=== PATIENT | female | born 1995 | race Hispanic/Latino ===

== ENCOUNTER 2017-12-29 11:53 | Emergency (ER) | payer SELFPAY ==
[~2017-12-29] VITALS: Ht 154.9 cm; Wt 90.9 kg
[2017-12-29] MEDS ORDERED: FLOXIN OTIC0.3 % OT (12:15)
[2017-12-29] MEDS ORDERED: LEVAQUIN750 MG PO (13:07)
[2017-12-29 13:10] VITALS: BP 129/74
== END 2017-12-29 13:10 | disposition home or self-care (01) | DRG 156 ==
LOC: ED 11:53
DX: H60.92 Unspecified otitis externa, left ear (principal)

== ENCOUNTER 2018-06-18 18:48 | Emergency (ER) | payer OTHER ==
[~2018-06-18] VITALS: Ht 154.9 cm; Wt 110.0 kg
[~2018-06-18 18:48] MED LIST: FLOXIN OTIC0.3 % OT; LEVAQUIN750 MG PO
[2018-06-18 20:25] LABS: URINE BILIRUBIN - DIPSTICK NEGATIVE (NEGATIVE); URINE BLOOD DIPSTICK LARGE (NEGATIVE); URINE COLOR YELLOW; URINE GLUCOSE - DIPSTICK NEGATIVE (NEGATIVE); URINE KETONE NEGATIVE (NEGATIVE); URINE LEUK ESTERASE NEGATIVE (NEGATIVE); URINE NITRITE - DIPSTICK NEGATIVE (Negative); URINE PROTEIN - DIPSTICK NEGATIVE (NEG-TRACE); URINE SPECIFIC GRAVITY 1.025; URINE UROBILINOGEN - DIPSTICK 0.2 E.U./dL (0.2)
[2018-06-18 20:28] LABS: URINE CLARITY CLEAR
[2018-06-18 20:37] LABS: URINE SQUAMOUS EPITHELIAL CELL FEW EPI/hpf (0-FEW); URINE WBC 0-2 WBC/hpf (0-5)
[2018-06-18 20:54] LABS: HEMATOCRIT 40.5 % (37.0-47.0); HEMOGLOBIN 13.3 g/dl (12.0-16.0); IMMATURE GRANULOCYTES 0.5 % (0.0-5.0); MEAN CELL VOLUME 88.2 fL CALC (80.0-100.0); MEAN CORPUSCULAR HGB CONC 32.8 g/L CALC (32.0-36.0); NEUT# 9.31 thou/uL (2.00-7.15); RED BLOOD COUNT 4.59 mill/uL (4.20-5.60); RED CELL DISTRI WIDTH 13.2 % (11.5-15.5)
[2018-06-18 21:13] LABS: ALKALINE PHOSPHATASE 87 u/l (38-126); ANION GAP 15 (6-22 (CALC)); BILIRUBIN, TOTAL 0.3 mg/dL (0.0-1.4); BUN 7 mg/dL (7-17); BUN/CREATININE RATIO 16 (12-20 (CALC)); CARBON DIOXIDE 22 mmol/l (22-30); CHLORIDE 107 mmol/l (95-108); CREATININE 0.5 mg/dL (0.5-1.0); GFR > 60 ML/MIN (>=60 (CALC)); GFR FOR AFR.AMER. > 60 ML/MIN (>=60 (CALC)); SGOT/AST 24 u/l (14-36); SODIUM 140 mmol/l (137-146); TOTAL PROTEIN 7.6 g/dL (6.3-8.2)
[2018-06-18 21:55] LABS: BETA-HCG, QUANT(RESULT NUMBER) 81345 mIU/mL
[2018-06-18 23:15] VITALS: BP 144/78
== END 2018-06-18 23:19 | disposition home or self-care (01) ==
LOC: ED 18:48
PROVIDERS: Emergency Medicine
DX: O20.0 Threatened abortion (principal); Z3A.10 10 weeks gestation of pregnancy

== ENCOUNTER 2018-09-05 00:42 | Emergency (ER) | payer OTHER ==
[~2018-09-05] VITALS: Ht 154.9 cm; Wt 107.0 kg
[2018-09-05 01:21] LABS: HEMOGLOBIN 12.7 g/dl (12.0-16.0); IMMATURE GRANULOCYTES 0.5 % (0.0-5.0); MEAN CELL VOLUME 88.7 fL CALC (80.0-100.0); MEAN CORPUSCULAR HGB 30.5 pG CALC (26.0-32.0); MEAN CORPUSCULAR HGB CONC 34.3 g/L CALC (32.0-36.0); NEUT# 8.62 thou/uL (2.00-7.15); RED BLOOD COUNT 4.17 mill/uL (4.20-5.60); RED CELL DISTRI WIDTH 13.7 % (11.5-15.5)
[2018-09-05 01:39] LABS: ANION GAP 15 (6-22 (CALC)); BUN 4 mg/dL (7-17); BUN/CREATININE RATIO 10 (12-20 (CALC)); CARBON DIOXIDE 21 mmol/l (22-30); CHLORIDE 106 mmol/l (95-108); CREATININE 0.4 mg/dL (0.5-1.0); GFR > 60 ML/MIN (>=60 (CALC)); GFR FOR AFR.AMER. > 60 ML/MIN (>=60 (CALC)); POTASSIUM 3.6 mmol/l (3.5-5.1); SODIUM 138 mmol/l (137-146)
[2018-09-05] MEDS ORDERED: PHENERGAN25 MG RE ×2 (02:44→15:21)
[2018-09-05] MEDS ORDERED: TESSALON PER100 MG PO ×2 (02:44→15:21)
[2018-09-05 02:52] VITALS: BP 132/70
[2018-09-05 03:05] LABS: URINE BILIRUBIN - DIPSTICK NEGATIVE (NEGATIVE); URINE BLOOD DIPSTICK NEGATIVE (NEGATIVE); URINE COLOR YELLOW; URINE GLUCOSE - DIPSTICK NEGATIVE (NEGATIVE); URINE KETONE TRACE mg/dL (NEGATIVE); URINE LEUK ESTERASE NEGATIVE (NEGATIVE); URINE NITRITE - DIPSTICK NEGATIVE (Negative); URINE PH 6.5 (4.5-8.0); URINE PROTEIN - DIPSTICK NEGATIVE (NEG-TRACE); URINE SPECIFIC GRAVITY <=1.005; URINE UROBILINOGEN - DIPSTICK 0.2 E.U./dL (0.2)
== END 2018-09-05 03:01 | disposition home or self-care (01) ==
LOC: ED 00:42
PROVIDERS: Family Medicine
DX: O98.512 Other viral diseases complicating pregnancy, second trimester (principal); A08.4 Viral intestinal infection, unspecified; Z3A.20 20 weeks gestation of pregnancy; R05 Cough; R11.10 Vomiting, unspecified; R09.89 Other specified symptoms and signs involving the circulatory and respiratory systems

== ENCOUNTER 2018-12-02 19:54 | Emergency (ER) | payer OTHER ==
[~2018-12-02] VITALS: Ht 154.9 cm; Wt 110.0 kg
[~2018-12-02 19:54] MED LIST changes: +PHENERGAN25 MG RE; +TESSALON PER100 MG PO
[2018-12-02] MEDS ORDERED: KEFLEX500 MG PO (20:21)
[2018-12-02 21:31] VITALS: BP 126/71
== END 2018-12-02 21:31 | disposition home or self-care (01) ==
LOC: ED 19:54
DX: O99.713 Diseases of the skin and subcutaneous tissue complicating pregnancy, third trimester (principal); L02.11 Cutaneous abscess of neck; Z3A.33 33 weeks gestation of pregnancy

== ENCOUNTER 2019-10-25 11:12 | Emergency (ER) | payer OTHER ==
[~2019-10-25 11:12] MED LIST changes: +KEFLEX500 MG PO
[2019-10-25] MEDS ORDERED: FLOXIN OTIC0.3 % AD (12:11)
[2019-10-25] MEDS ORDERED: AMOXICILLIN875 MG PO (12:11)
[2019-10-25 12:15] VITALS: BP 131/77
== END 2019-10-25 12:15 | disposition home or self-care (01) ==
LOC: ED 11:12
DX: H66.91 Otitis media, unspecified, right ear (principal); H60.91 Unspecified otitis externa, right ear

== ENCOUNTER 2020-02-28 11:14 | Observation (INO) | payer OTHER ==
[~2020-02-28] VITALS: Ht 157.5 cm; Wt 107.0 kg
[~2020-02-28 11:14] MED LIST changes: +AMOXICILLIN875 MG PO; +FLOXIN OTIC0.3 % AD
--- NOTE | 2020-02-28 11:27 | NUR ---
PT WAS BROUGHT ROOM BY WHEELCHAIR FOR TRIAGE. PT A7O X 3
[2020-02-28 11:56] LABS: HEMOGLOBIN 13.8 g/dl (12.0-16.0); IMMATURE GRANULOCYTES 0.3 % (0.0-5.0); MEAN CELL VOLUME 86.7 fL CALC (80.0-100.0); MEAN CORPUSCULAR HGB 27.8 pG CALC (26.0-32.0); NEUT# 5.56 thou/uL (2.00-7.15); RED BLOOD COUNT 4.97 mill/uL (4.20-5.60); RED CELL DISTRI WIDTH 13.2 % (11.5-15.5)
[2020-02-28 11:57] LABS: URINE BILIRUBIN - DIPSTICK NEGATIVE (NEGATIVE); URINE BLOOD DIPSTICK NEGATIVE (NEGATIVE); URINE COLOR YELLOW; URINE GLUCOSE - DIPSTICK NEGATIVE (NEGATIVE); URINE KETONE NEGATIVE (NEGATIVE); URINE LEUK ESTERASE NEGATIVE (NEGATIVE); URINE NITRITE - DIPSTICK NEGATIVE (Negative); URINE PROTEIN - DIPSTICK NEGATIVE (NEG-TRACE); URINE SPECIFIC GRAVITY >=1.030; URINE UROBILINOGEN - DIPSTICK 0.2 E.U./dL (0.2)
--- NOTE | 2020-02-28 12:01 | NUR ---
PT WAS BROUGHT TO ROOM BY WHEELCHAIR. PT WAS ALERT AND ORIENTED X 3
[2020-02-28 12:07] LABS: HEMATOCRIT 43.1 % (37.0-47.0)
[2020-02-28 12:12] LABS: ALBUMIN 4.6 g/dL (3.2-5.0); AMYLASE 77 u/l (30-110); ANION GAP 12 (6-22 (CALC)); BUN 7 mg/dL (7-17); BUN/CREATININE RATIO 13 (12-20 (CALC)); CARBON DIOXIDE 25 mmol/l (22-30); CHLORIDE 105 mmol/l (95-108); CREATININE 0.6 mg/dL (0.5-1.0); GFR > 60 ML/MIN (>=60 (CALC)); GFR FOR AFR.AMER. > 60 ML/MIN (>=60 (CALC)); LIPASE 62 u/l (23-300); POTASSIUM 3.8 mmol/l (3.5-5.1); SGOT/AST 40 u/l (14-36); SODIUM 139 mmol/l (137-146); TOTAL PROTEIN 8.6 g/dL (6.3-8.2)
[2020-02-28 12:13] LABS: ALKALINE PHOSPHATASE 135 u/l (38-126); BILIRUBIN, TOTAL 0.8 mg/dL (0.0-1.4)
--- NOTE | 2020-02-28 12:53 | NUR ---
PT IS RESTING ON STRETCHER NO DISTRESS NOTED
[2020-02-28] MEDS ORDERED: ZOFRAN4 MG/TAB PO ×2 (13:24)
[2020-02-28] MEDS ORDERED: TRAMADOL HYDROC50 M1 PO (13:24)
--- NOTE | 2020-02-28 13:53 | NUR ---
PT RESTING COMFORTABLY WAITIONG FOR TEST RESULTS. NO DISTRESS NOTED.
--- NOTE | 2020-02-28 15:00 | NUR ---
Admission Note Report Given to: MIGUEL MCDERMOTT Transported by: X Wheelchair Stretcher Transported with: X Nurse Transporter X Patent IV O2 Platform Consultant Location: ICU X MS2
[2020-02-28 15:02] VITALS: BP 114/60
--- NOTE | 2020-02-28 15:02 | NUR ---
RECIEVED REPORT FROM KARYN COLLINS. PT ARRIVED TO MED SURG ROOM 262 IN STABLE CONDITION VIA WHEELCHAIR ACCOMPAINED BY SPOUSE AND ER STAFF. PT AMBULATED FROM WHEELCHAIR TO SCALE WITH STEADY GAIT, FALL RISK BAND APPLIED. ASSESSMENT AND VITALS OBTAINED AT THIS TIME. BP 114/60, HR 62, 02 99% ON ROOM AIR. RESPIRATIONS ARE EVEN AND UNLABROED WITH NO SIGNS OF DISTRESS. LUNG SOUNDS ARE CLEAR. HEART RHYTHM IS NORMAL. BOWEL SOUNDS ARE HYPOACTIVE WITH NO TENDERNESS, LAST REPORTED BM 02/28/20. RADIAL AND PEDAL PULSES ARE STRONG WITH NORMAL CAPILLARY REFILL. SKIN IS WARM AND DRY WITH NO BREAK DOWN OR EDEMA. #20G IN LAC FLUSHED, SITE APPEARS HEALTHY AND PATENT. LR STARTED RUNNING AT 100 ML ORDERED. PT INFORMED WRITTER THAT SHE CAME TO [facility] ER DUE TO A PAIN IN HER ABDOMEN, PT INFORMED WRITTER THAT SHE NO LONGER HAS ANY PAIN AFTER TORADOL GIVEN IN ER. PT DENIES ANY NAUSEA OR PAIN AT THIS TIME. PT INFORMED WRITTER THAT SHE DOES NOT HAVE ANY KNOWN DRUG ALLERGIES, ALLERGY BAND APPLIED. PT DENIES ANY ADDITIONAL NEEDS AT THIS TIME. ALL SAFTEY PRECAUTIONS ARE IN PLACE WITH CALL LIGHT IN REACH. PT ORIENTED TO CALL SYSTEM AND ROOM.WILL CONTINUE TO MONITOR.
--- NOTE | 2020-02-28 16:00 | NUR ---
PT NOTIFED OF SCHEDULED LAPAROSCOPIC CHOLECYSTECTOMY, PT VERABLIZED UNDERSTANIDNG. PT REQUESTED TO SPEAK TO DR BEFORE SIGNING CONSENT.
--- NOTE | 2020-02-28 16:36 | NUR ---
PT RESTING IN SEMI FOWLERS POSITION WITH AT BEDSIDE. RESPIRATIONS ARE EVEN AND UNLABORED WITH NO SIGNS OF DISTRESS. PT DENIES ANY PAIN OR DISCOMFORTS AT THIS TIME. ALL SAFETY 0PRECAUTIONS ARE IN PLACE WITH CALL LIGTH IN REACH.WILL CONTINUE TO MONITOR
[2020-02-28 19:00] VITALS: BP 136/86
--- NOTE | 2020-02-28 19:55 | NUR ---
Received report for this pt and in bed with eyes open and able to make needs known. no respiratory distress noted. will continue to observe.
[2020-02-28 20:37] VITALS: BP 111/75
[2020-02-29] VITALS (9 sets, daily range): BP systolic 121–139; BP diastolic 45–104
--- NOTE | 2020-02-29 03:09 | NUR ---
PT IN BED WITH EYES CLOSED. RESPIRATIONS ARE EVEN AND NON LABORED. PT IS ABLE TO VERBALIZE NEEDS. CURRENTLY NPO STATUS FOR SURGERY IN AM AND CONSENT SIGNED. WAS GIVEN DILAUDID EARLIER IN SHIFT ANF VOMITED SHORTLY AFTER ADMINISTERED. ZOFRAN WAS GIVEN AND EFFECTIVE. PT IS AMBULATORY WITH STEADY GAIT AND BALANCE AND CONTINENT OF B/B. TOLERATING ZOSYN ABT WELL. IV TO LAC INTACT AND DRESSING IN PLACE AND SITE APPEARS TO BE HEALTHY. LACTATED RINGERS RUNNING AT 100ML/HR AND TOLERATING WELL. CALL LIGHT IS WITHIN REACH AND BED IN LOWEST POSITION WILL CONTINUE TO OBSERVE.
--- NOTE | 2020-02-29 05:35 | NUR ---
PT IN BED WITH EYES CLOSED. NO S/S OF DISTRESS. MEDICATIONS GIVEN AND TOLEERATED WELL. MILD PAIN IN RIGHT UPPER AND RIGHT LOWER QUADRANT OF ABDOMEN. MEDICATED PRESCIBED FROM MD WITH TORADOL AND TOLERATING WELL. CONTINENT OF B/B AND AMBULATES TO TOILET. CALL LIGHT WITHIN REACH. BSC AT BEDSIDE . EDUCATED PT TO CALL FOR ASSIST WITH TRANSFERS AND SHE STATED THAT SHE UNDERSTOOD. WILL CONTINUE TO OBSERVE.
[2020-02-29 05:49] LABS: ALBUMIN 3.7 g/dL (3.2-5.0); DIRECT BILIRUBIN 0.4 mg/dl (0.0-0.3); TOTAL PROTEIN 6.9 g/dL (6.3-8.2)
[2020-02-29 05:52] LABS: BILIRUBIN, TOTAL 2.4 mg/dL (0.0-1.4)
--- NOTE | 2020-02-29 11:50 | NUR ---
PT ARRIVED TO [facility] ROOM 262 IN STABLE CONDITION VIA STRETCHER ACCOMPAINED BY OR STAFF. PT TRANSPORTED FOR WHEELCHAIR TO BED WITH NO DIFFICULTY. ASSESSMENT AND VITALS COMPLETED AT THIS TIME. BP 139/73, HR 84, O2 98% ON ROOM AIR . RESPIRATIONS ARE EVEN AND UNLABORED WITH NO SIGNS OF DISTRESS. LUNG SOUNDS ARE CLEAR. HEART RYTHM IS NORMAL. BOWEL SOUNDS ARE HYPOACTIVE WITH TENDERNESS IN ALL QUADRANTS. RADIAL AND PEDAL PULSES ARE STRONG WITH NORMAL CAPILLARY REFILL. PT COMPLAINS OF 10/10 ABD PAIN AND NAUSEA, DILAUDID AND ZOFRAN TO BE ADMINISTERED. DRESSING TO UPPER RIGHT QUADRANT OF ABD CDI. REGINALDO DRAIN IN PLACE, LITTLE RED COLORED OUTPUT AT THIS TIME.PT HAD SCHEDULED LAPAROSCOPIC CHOLECYSTECTOMY WITH INTRAOPERATIVE CHAKANGIOGRAM THAT WAS CONVERTED TO AN OPEN REPAIN OF COMMON BILE DUCT AND EXPLORATION THROUGH CYSTIC DUCT. PT DENIES ANY OTHER PAIN OR DISCOMFORTS AT THIS TIME. ALL SAFETY PRECAUTIONS ARE IN PLACE WITH CALL LIGHT IN REACH. WILL CONTINUE TO MONITOR
--- NOTE | 2020-02-29 13:27 | NUR ---
REASSESSMENT OF PAIN AT THIS TIME. PT STATES PAIN IS 9/10 , DILAUDID IS HELPING "A BIT". RESPIRATIONS ARE EVEN AND UNLABORED WITH NO SIGNS OF DISTRESS. ALL SAFTEY PRECAUTIONS ARE IN PLACE WITH CALL LIGHT IN REACH.
--- NOTE | 2020-02-29 15:00 | NUR ---
PT COMPLAINING OF 9/10 ADB PAIN AT THIS TIME. SUGGESTED DILAUDID , PT ACCEPTED. RESPIRATIONS ARE EVEN AND UNLABORED WITH NO SIGNS OF DISTRESS. ALL SAFETY PRECAUTIONS ARE IN PLACE WITH CALL LIGTH IN REACH.W ILL CONTINUE TO MONITOR
--- NOTE | 2020-02-29 15:45 | NUR ---
REASSESSMENT OF PAIN AT THIS TIME RESULTING IN 5/. PT STATES THAT SHE DOES HAVE" A LITTLE BIT OF NAUSEA" AT THIS TIME. INFORMED PT THAT HER ZOFRAN WAS NOT AVAILABLE AT THIS TIME, PT VERBALIZED UNDERSTANDING. RESPIRATIONS ARE EVEN AND UNLABORED WITH NO SIGNS OF DISTRESS. ALL SAFTEY PRECAUTIONS ARE IN PLACE WITH CALL LIGHT IN REACH. WILL CONTINUE TO MONITOR
[2020-02-29 18:51] LABS: BILIRUBIN, TOTAL 3.9 mg/dL (0.0-1.4); DIRECT BILIRUBIN 1.4 mg/dl (0.0-0.3); TOTAL PROTEIN 7.6 g/dL (6.3-8.2)
--- NOTE | 2020-02-29 20:20 | NUR ---
PT MEDICATED AND ASSESSMENT COMPLETED AT THIS TIME. PT MEDICATED FOR PAIN 7/10 ON PAIN SCALE. PT IS TALKING W/FAMILY MEMBER ON CELLPHONE. DRESSING TO RUQ ABDOMEN CDI.
--- NOTE | 2020-02-29 23:23 | NUR ---
PT MEDICATED W/IV ANTIBIOTIC THERAPY AND FOR PAIN 8/10 ON PAIN SCALE.
[2020-03-01 03:33] VITALS: BP 125/70
[2020-03-01 05:51] LABS: ALBUMIN 3.5 g/dL (3.2-5.0); BILIRUBIN, TOTAL 4.1 mg/dL (0.0-1.4); DIRECT BILIRUBIN 1.6 mg/dl (0.0-0.3); TOTAL PROTEIN 6.5 g/dL (6.3-8.2)
--- NOTE | 2020-03-01 06:18 | NUR ---
PT MEDICATED W/IV ANTIBIOTIC THERAPY AND FOR PAIN 5/10 ON PAIN SCALE. PT WAS SLEEPING I ENTERED THE ROOM. NEW ICEWATER PROVIDED AT THIS TIME. ABD DRAIN EMPTIED OF 50CC OF DARK BLOODY FLUID AND RESET TO BULB SUCTION. INCISION DRESSING TO RHaiABD APPEARS CDI.
[2020-03-01 08:37] VITALS: BP 137/64
--- NOTE | 2020-03-01 08:55 | NUR ---
PT IN BED WITH EYES OPEN. ABLE TO MAKE NEEDS KNOWN. SKIN WARM TO TOUCH. DRESSING INTACT TO ABDOMEN. ROYCE DRAIN DRAINING BRIGHT RED DRAINAGE. PT BOWEL SOUNDS ARE HYPOACTIVE AND STATES HAS NOT HAD BOWEL MOVEMNT SINCE 02/28/20. ABDOMEN IS DISTENDED AND SOFT. MEDICATED FOR PAIN AND NAUSEA. CONTINENT OF B/B ANFD AMBULATING TO BATHROOM WITH NO ASSIST NEEDED. MEAL INTAKE AND FLUIDS ENCOURAGED. CONTINUES WITH #20 TO LAC AND SITE HEALTHY AND DRESSING INTACT. LACTATED RINGERS AT 100ML/HR AND TOLERATING WELL. CALL LIGHT IS WITHIN REACH. BED IN LOWEST POSITION. ENCOURAGED PT TO USE INCENTIVE SPIROMETER AND SHE STATED SHE UNDERSTOOD TEACHING.
--- NOTE | 2020-03-01 14:02 | NUR ---
MD IN TO SEE PT AND PT MADE AWARE SHE IS IN NEED OF AN ERCP. PT AGREES WITH TREATMENT TO BE TRANSFERRED TO [facility]. PT IV SITE CHANGED TO DANE 3 20 ANSD TOLERATED WELL. CONTINUES ON ABT THERAPY. WILL CONTINUE TO OBSERVE.
[2020-03-01 15:00] VITALS: BP 127/74
--- NOTE | 2020-03-01 15:46 | NUR ---
CALLED [facility] SPOKE TO VIOLETTE GAVE PT INFORMATION. 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
[2020-03-01] MEDS ORDERED: PERCOCET 5/321 COMBO PO (16:15)
[2020-03-01 18:40] VITALS: BP 144/92
--- NOTE | 2020-03-01 20:15 | NUR ---
PT IN BED WITH EYES OPEN. MEDICATED FOR PAIN AND HELPFUL. ABDOMEN DISTENDED AND FIRM. BOWEL SOUNDS ARE HYPOACTIVE AND NO BM TODAY BUT PASSING GAS PER PT. 40ML OF BRIGHT RED BLOOD EMPTIED FROM REGINALDO DRAIN. WAITING ON TRANSFER TO [facility] AND REPORT CALLED IN TO UNIT NURSE. WILL CONTINUE TO OBSERVE. DRESSING INTACT TO ABDOMEN AREA AND NO SHADOWING NOTED.
--- NOTE | 2020-03-01 21:48 | NUR ---
PT OFF UNIT FLOOR VIA STRETCHER ACCOMPANIED BY [facility] TRANSPORT STAFF X2. PT HAS BEEN MEDICATED FOR NAUSEA AND PAIN. ROYCE DRAIN EMPTIED OF 10CC OF BLOODY DRAINAGE AND ALL BELONGINGS GATHERED. PT IN STABLE CONDITION UPON LEAVING.
== END 2020-03-01 21:48 | disposition short-term general hospital (02) ==
LOC: ED 11:14 → ED-I 12:17 → ED 13:33 → ED-I 13:34 → MS2 13:34
PROVIDERS: ADMIT Surgery; ATTEND Surgery
DX: K80.63 Calculus of gallbladder and bile duct with acute cholecystitis with obstruction (principal); K91.71 Accidental puncture and laceration of a digestive system organ or structure during a digestive system procedure; I10 Essential (primary) hypertension; Y83.6 Removal of other organ (partial) (total) as the cause of abnormal reaction of the patient, or of later complication, without mention of misadventure at the time of the procedure; Z11.59 Encounter for screening for other viral diseases
CPT/HCPCS: C9290; G0378; J0131; J1100; J1610; Q9967

== ENCOUNTER 2020-03-16 06:22 | Emergency (ER) | payer OTHER ==
[~2020-03-16] VITALS: Ht 157.5 cm; Wt 113.6 kg
[~2020-03-16 06:22] MED LIST changes: +PERCOCET 5/321 COMBO PO; +TRAMADOL HYDROC50 M1 PO; +ZOFRAN4 MG/TAB PO
[2020-03-16] MEDS ORDERED: METRONIDAZOL500 MG PO (06:47)
[2020-03-16] MEDS ORDERED: ZOFRAN4 MG/TAB PO (06:47)
[2020-03-16] MEDS ORDERED: CIPROFLOXACN500 MG PO (06:47)
[2020-03-16 07:21] LABS: HEMATOCRIT 35.8 % (37.0-47.0); HEMOGLOBIN 11.2 g/dl (12.0-16.0); IMMATURE GRANULOCYTES 0.5 % (0.0-5.0); MEAN CELL VOLUME 87.1 fL CALC (80.0-100.0); MEAN CORPUSCULAR HGB 27.3 pG CALC (26.0-32.0); MEAN CORPUSCULAR HGB CONC 31.3 g/dL CAL (32.0-36.0); NEUT# 14.46 thou/uL (2.00-7.15); RED BLOOD COUNT 4.11 mill/uL (4.20-5.60); RED CELL DISTRI WIDTH 13.2 % (11.5-15.5)
[2020-03-16 07:44] LABS: ALBUMIN 3.9 g/dL (3.2-5.0); AMYLASE 59 u/l (30-110); ANION GAP 13 (6-22 (CALC)); BILIRUBIN, TOTAL 1.2 mg/dL (0.0-1.4); BUN 7 mg/dL (7-17); BUN/CREATININE RATIO 13 (12-20 (CALC)); CARBON DIOXIDE 29 mmol/l (22-30); CHLORIDE 97 mmol/l (95-108); CREATININE 0.5 mg/dL (0.5-1.0); GFR > 60 ML/MIN (>=60 (CALC)); GFR FOR AFR.AMER. > 60 ML/MIN (>=60 (CALC)); LIPASE 43 u/l (23-300); POTASSIUM 3.5 mmol/l (3.5-5.1); SGOT/AST 38 u/l (14-36); SODIUM 135 mmol/l (137-146); TOTAL PROTEIN 8.1 g/dL (6.3-8.2)
[2020-03-16 07:45] LABS: ALKALINE PHOSPHATASE 435 u/l (38-126)
[2020-03-16 09:40] LABS: URINE BLOOD DIPSTICK NEGATIVE (NEGATIVE); URINE GLUCOSE - DIPSTICK NEGATIVE (NEGATIVE); URINE KETONE 40 mg/dL (NEGATIVE); URINE LEUK ESTERASE NEGATIVE (NEGATIVE); URINE NITRITE - DIPSTICK NEGATIVE (Negative); URINE PH 5.5 (4.5-8.0); URINE PROTEIN - DIPSTICK 100 mg/dL (NEG-TRACE); URINE SPECIFIC GRAVITY >=1.030; URINE UROBILINOGEN - DIPSTICK 0.2 E.U./dL (0.2)
[2020-03-16 09:46] LABS: URINE BILIRUBIN - DIPSTICK NEGATIVE (NEGATIVE); URINE COLOR AMBER
[2020-03-16 10:12] LABS: URINE SQUAMOUS EPITHELIAL CELL MODERATE EPI/hpf (0-FEW)
[2020-03-16 10:13] LABS: URINE WHITE BLOOD CELL CAST FEW lpf
[2020-03-16 11:55] VITALS: BP 170/101
== END 2020-03-16 11:55 | disposition short-term general hospital (02) ==
LOC: ED 06:22 → ED-I 10:45 → ED 11:55
PROVIDERS: Emergency Medicine
DX: T85.520A Displacement of bile duct prosthesis, initial encounter (principal); Y83.1 Surgical operation with implant of artificial internal device as the cause of abnormal reaction of the patient, or of later complication, without mention of misadventure at the time of the procedure; Z90.49 Acquired absence of other specified parts of digestive tract; Z96.89 Presence of other specified functional implants
CPT/HCPCS: Q9967